=== PATIENT | female | born 1935 | race Caucasian/White ===

== ENCOUNTER 2016-08-04 10:47 | Outpatient (CLI) | payer MEDICARE, BC ==
[2014-10-08 08:30] VITALS: BMI 26.8
[~2016-08-04 10:47] MED LIST: HYDROCODONE-APA1 TAB PO; LISINOPRIL10 MG PO; NOLVADEX10 M1 PO
== END 2016-08-04 11:56 ==
LOC: D.MAMMO 10:47
DX: Z85.3 Personal history of malignant neoplasm of breast (principal)

== ENCOUNTER → 2017-09-23 18:32 | Outpatient (CLI) | payer MEDICARE, BC ==
[2014-10-08 08:30] VITALS: BMI 26.8
== END | disposition home or self-care (01) ==
LOC: D.MAMMO 09-22 11:15
DX: Z12.31 Encounter for screening mammogram for malignant neoplasm of breast (principal)

== ENCOUNTER 2018-06-27 08:00 | Outpatient (CLI) | payer MEDICARE, BC ==
[2014-10-08 08:30] VITALS: BMI 26.8
== END 2018-06-27 09:00 | disposition home or self-care (01) ==
LOC: D.MAMMO 08:00
PROVIDERS: ATTEND Surgery
DX: N64.4 Mastodynia (principal); Z85.3 Personal history of malignant neoplasm of breast

== ENCOUNTER 2020-08-10 10:32 | Emergency (ER) | payer OTHER ==
[~2020-08-10] VITALS: Ht 165.1 cm; Wt 76.8 kg
[2020-08-10 10:39] VITALS: Ht 165.1 cm; Wt 76.8 kg
[2020-08-10 12:52] LABS: BASOPHILS 0.8 % (0-2); EOSINOPHILS 1.2 % (0-7); HEMATOCRIT 37.3 % (36.0-48.0); HEMOGLOBIN 12.4 g/dL (12-16); LYMPHOCYTES 21.8 % (15-50); MCH 33.4 pg (26.0-34.0); MCHC 33.4 g/dL (31.0-37.0); MCV 100.1 fL (80.0-100.0); MEAN PLATELET VOLUME 8.8 fL (7.4-10.4); MONOCYTES 8.3 % (2-11); NEUTROPHILS 67.9 % (40-80); RBC 3.72 10x6/uL (4.00-5.40); RDW 12.6 % (11.5-14.5)
[2020-08-10 13:06] LABS: PLATELET COUNT 257 10x3/uL (130-400)
[2020-08-10 13:11] LABS: CALC OSMOLALITY 276 mosm/kg (275-300); CALCIUM 8.8 mg/dL (8.5-10.1); CARBON DIOXIDE 29.7 mmol/L (21.0-32.0); CHLORIDE - SERUM 102 mmol/L (98-107); CREATININE - SERUM 0.9 mg/dL (0.6-1.3); GLUCOSE 91 mg/dL (74-106); POTASSIUM - SERUM 4.1 mmol/L (3.5-5.1); SODIUM 138 mmol/L (136-145); UREA NITROGEN 16 mg/dL (7-18); eGFR NON AFRICAN AMERICAN 63 mL/min (90-120)
[2020-08-10 13:29] LABS: ALBUMIN 3.8 g/dL (3.4-5.0); ALKALINE PHOSPHATASE 64 U/L (30-120); ALT (SGPT) 23 U/L (10-68); CKMB 2.2 U/L (0.0-3.6); CREATINE KINASE 81 UL (21-215); MAGNESIUM - SERUM 2.4 mg/dL (1.8-2.4); PROTEIN - SERUM 7.7 g/dL (6.4-8.2)
[2020-08-10 13:30] LABS: TROPONIN-I < 0.017 ng/mL (0.000-0.060)
[2020-08-10 14:08] VITALS: BP 162/58
== END 2020-08-10 14:09 | disposition home or self-care (01) ==
LOC: D.ER 10:32
PROVIDERS: Family Medicine
DX: I10 Essential (primary) hypertension (principal); R09.89 Other specified symptoms and signs involving the circulatory and respiratory systems

== ENCOUNTER 2020-08-18 18:41 | Emergency (ER) | payer OTHER ==
[~2020-08-18] VITALS: Ht 165.1 cm; Wt 77.7 kg
[2020-08-18 18:45] VITALS: Ht 165.1 cm; Wt 77.7 kg
[2020-08-18 19:06] LABS: BASOPHILS 0.6 % (0-2); EOSINOPHILS 1.7 % (0-7); HEMATOCRIT 37.5 % (36.0-48.0); HEMOGLOBIN 12.6 g/dL (12-16); LYMPHOCYTES 30.5 % (15-50); MCH 34.1 pg (26.0-34.0); MCHC 33.5 g/dL (31.0-37.0); MCV 101.7 fL (80.0-100.0); MEAN PLATELET VOLUME 7.8 fL (7.4-10.4); MONOCYTES 9.7 % (2-11); NEUTROPHILS 57.5 % (40-80); PLATELET COUNT 282 10x3/uL (130-400); RBC 3.69 10x6/uL (4.00-5.40); RDW 12.7 % (11.5-14.5); WBC 6.1 10x3/uL (4.8-10.8)
[2020-08-18 19:13] LABS: CALC OSMOLALITY 273 mosm/kg (275-300); CALCIUM 9.2 mg/dL (8.5-10.1); CHLORIDE - SERUM 99 mmol/L (98-107); CREATININE - SERUM 0.9 mg/dL (0.6-1.3); GLUCOSE 99 mg/dL (74-106); POTASSIUM - SERUM 4.4 mmol/L (3.5-5.1); SODIUM 136 mmol/L (136-145); UREA NITROGEN 18 mg/dL (7-18); eGFR NON AFRICAN AMERICAN 63 mL/min (90-120)
[2020-08-18 19:30] LABS: ALBUMIN 4.1 g/dL (3.4-5.0); ALKALINE PHOSPHATASE 73 U/L (30-120); ALT (SGPT) 21 U/L (10-68); BILIRUBIN - TOTAL 0.26 mg/dL (0.2-1.3); CKMB 2.4 U/L (0.0-3.6); CREATINE KINASE 108 UL (21-215); MAGNESIUM - SERUM 2.6 mg/dL (1.8-2.4); PROTEIN - SERUM 8.2 g/dL (6.4-8.2); TROPONIN-I < 0.017 ng/mL (0.000-0.060)
[2020-08-18 22:22] VITALS: BP 159/62
== END 2020-08-18 22:01 | disposition home or self-care (01) ==
LOC: D.ER 18:41
PROVIDERS: Family Medicine
DX: I10 Essential (primary) hypertension (principal); R09.89 Other specified symptoms and signs involving the circulatory and respiratory systems; R51.9 Headache, unspecified